=== PATIENT | female | born 1965 | race Caucasian/White ===

== ENCOUNTER 2016-09-23 14:06 | Observation (INO) | payer OTHER ==
[~2016-09-23] VITALS: Ht 160 cm; Wt 63.0 kg
[2016-09-23 14:16] VITALS: BP 130/69; PULSE 90; RESP 20; TEMP 97.9; O2SAT 98
--- NOTE | 2016-09-23 16:05 | PD ---
HPI Chief Complaint: Depression Time Seen by Provider: 15:45 Travel History International Travel<30 days: No Contact w/Intl Traveler<30days: No Traveled to known affect area: No History of Present Illness HPI 51yo F with PMH of depression presents to the ED with c/o occasional suicidal thoughts. Denies any right now. Also has visual hallucinations but not right now. Pt was a missing person and was brought to [facility] and had a full work up and discharged today. As per pt, they were told to come to [place] for psych. Pt denies any fever, chest pain, sob, n/v, abdominal pain, focal weakness or numbness. Denies any drug use. PFSH Social History Tobacco Use: No Allergies-Medications (Allergen,Severity, Reaction): Coded Allergies: Penicillin (Verified Allergy, Intermediate, hives, 09/23/16) Reported Meds & Prescriptions Reported Meds & Active Scripts Active No Active Prescriptions or Reported Medications Review of Systems Except as stated in HPI: all other systems reviewed are Neg Physical Exam Narrative GENERAL: 51yo F not in distress. SKIN: Focused skin assessment warm/dry. HEAD: Atraumatic. Normocephalic. EYES: Pupils equal and round. EOMI. No scleral icterus. No injection or drainage. ENT: No nasal bleeding or discharge. Mucous membranes pink and moist. NECK: Trachea midline. No JVD. CARDIOVASCULAR: Regular rate and rhythm. No murmur appreciated. RESPIRATORY: No accessory muscle use. Clear to auscultation. Breath sounds equal bilaterally. GASTROINTESTINAL: Abdomen soft, non-tender, nondistended. No rebound tenderness or guarding. MUSCULOSKELETAL: No obvious deformities. No clubbing. No cyanosis. No edema. NEUROLOGICAL: Awake and alert. No obvious cranial nerve deficits. Motor grossly within normal limits. Normal speech. PSYCHIATRIC: Inappropriate mood and affect. Poor insight and judgment. Data Data Last Documented VS Vital Signs Date Time Temp Pulse Resp B/P Pulse Ox O2 Delivery O2 Flow Rate FiO2 09/23/16 15:46 88 18 09/23/16 14:16 97.9 130/69 98 Room Air Orders Complete Blood Count With Diff (09/23/16 16:00) Comprehensive Metabolic Panel (09/23/16 16:00) Ed Urine Pregnancytest Poc (09/23/16 16:00) Psych Screen (09/23/16 16:00) Drug Screen, Random Urine (09/23/16 16:00) Alcohol (Ethanol) (09/23/16 16:00) Salicylates (Aspirin) (09/23/16 16:00) Tylenol (Acetaminophen) (09/23/16 16:00) Potassium Chloride (Kcl) (09/23/16 17:30) Potassium Chloride (Kcl) (09/24/16 07:00) Labs Laboratory Tests Test 09/23/16 09/23/16 16:10 16:15 Urine Opiates Screen NEG Urine Barbiturates Screen NEG Urine Amphetamines Screen NEG Urine Benzodiazepines Screen NEG Urine Cocaine Screen NEG Urine Cannabinoids Screen NEG White Blood Count 12.6 TH/MM3 Red Blood Count 4.28 MIL/MM3 Hemoglobin 13.7 GM/DL Hematocrit 41.3 % Mean Corpuscular Volume 96.5 FL Mean Corpuscular Hemoglobin 31.9 PG Mean Corpuscular Hemoglobin 33.1 % Concent Red Cell Distribution Width 13.3 % Platelet Count 335 TH/MM3 Mean Platelet Volume 8.6 FL Neutrophils (%) (Auto) 61.9 % Lymphocytes (%) (Auto) 25.6 % Monocytes (%) (Auto) 9.5 % Eosinophils (%) (Auto) 2.5 % Basophils (%) (Auto) 0.5 % Neutrophils # (Auto) 7.8 TH/MM3 Lymphocytes # (Auto) 3.2 TH/MM3 Monocytes # (Auto) 1.2 TH/MM3 Eosinophils # (Auto) 0.3 TH/MM3 Basophils # (Auto) 0.1 TH/MM3 CBC Comment DIFF FINAL Differential Comment Sodium Level 144 MEQ/L Potassium Level 2.9 MEQ/L Chloride Level 104 MEQ/L Carbon Dioxide Level 30.9 MEQ/L Anion Gap 9 MEQ/L Blood Urea Nitrogen 10 MG/DL Creatinine 1.02 MG/DL Estimat Glomerular Filtration 57 ML/MIN Rate Random Glucose 99 MG/DL Calcium Level 10.1 MG/DL Total Bilirubin 0.4 MG/DL Aspartate Amino Transf 40 U/L (AST/SGOT) Alanine Aminotransferase 129 U/L (ALT/SGPT) Alkaline Phosphatase 71 U/L Total Protein 8.4 GM/DL Albumin 3.9 GM/DL Salicylates Level 4.2 MG/DL Acetaminophen Level LESS THAN 2.0 MCG/ML Ethyl Alcohol Level LESS THAN 3 MG/DL MDM Medical Decision Making Medical Screen Exam Complete: Yes Emergency Medical Condition: Yes Differential Diagnosis Psychosis vs. Depression vs. bipolar vs. schizophrenia Narrative Course 51yo F who appears stoic and paranoid here for psychiatric evaluation. Pt has no medical complaints and has just been discharged from [facility] today. Will do labs, urine drug screen and obtain psych evaluation. Informed by my nurse that pt states she is suicidal to her. Pt is psychotic and telling me about her visual hallucinations. I feel that she is a threat to herself and will Wooten Act her. Labs reviewed, mild leukocytosis at 12.6. K: 2.9, replaced with 60mEq KCl PO and will give another 40mEq KCl in AM if pt is still here. Pt is tolerating PO and can replace orally. AST/ALT mildly elevated but pt has no abdominal pain. Pt has no complaints and was just discharged from another hospital with full work up. Urine tox is negative. Alcohol negative. Acetaminophen negative. Salicylate 4.2. Pt is medically clear for psych evaluation. Diagnosis Primary Impression: Depression Qualified Code: F32.9 - Depression, unspecified depression type Additional Impression: Hypokalemia Scripts No Active Prescriptions or Reported Meds Stella Kim DO September 23, 2016 16:05
[2016-09-23 16:40] LABS: AUTOMATED NEUTROPHIL # 7.8 TH/MM3 (1.8-7.7); BASOPHIL # 0.1 TH/MM3 (0-0.2); BASOPHIL % 0.5 % (0.0-2.0); EOSINOPHIL # 0.3 TH/MM3 (0-0.4); EOSINOPHIL % 2.5 % (0.0-4.0); HEMATOCRIT 41.3 % (35.0-46.0); HEMO FLAGS DIFF FINAL; LYMPH % 25.6 % (9.0-44.0); LYMPHOCYTE # 3.2 TH/MM3 (1.0-4.8); MEAN CELL VOLUME 96.5 FL (80.0-100.0); MEAN CORPUSCULAR HEMOGLOBIN 31.9 PG (27.0-34.0); MEAN CORPUSCULAR HGB CONC 33.1 % (32.0-36.0); MONO % 9.5 % (0.0-8.0); NEUT % 61.9 % (16.0-70.0); PLATELET COUNT 335 TH/MM3 (150-450); RED BLOOD COUNT 4.28 MIL/MM3 (4.00-5.30); RED CELL DISTRIBUTION WIDTH 13.3 % (11.6-17.2); WHITE BLOOD COUNT 12.6 TH/MM3 (4.0-11.0)
[2016-09-23 17:02] LABS: AMPHETAMINE, URINE NEG (NEG); BARBITURATES, URINE NEG (NEG); COCAINE, URINE NEG (NEG)
[2016-09-23 17:18] LABS: ACETAMINOPHEN LESS THAN 2.0 MCG/ML (10.0-30.0); ALKALINE PHOSPHATASE 71 U/L (45-117); ALT (GPT) 129 U/L (10-53); ANION GAP 9 MEQ/L (5-15); AST (GOT) 40 U/L (15-37); BICARBONATE 30.9 MEQ/L (21.0-32.0); BLOOD UREA NITROGEN 10 MG/DL (7-18); CHLORIDE 104 MEQ/L (98-107); GLOMERULAR FILTRATION RATE 57 ML/MIN (>89); SODIUM (NA) 144 MEQ/L (136-145); TOTAL BILIRUBIN ADULT 0.4 MG/DL (0.2-1.0)
[2016-09-23 17:20] LABS: POTASSIUM 2.9 MEQ/L (3.5-5.1)
[2016-09-23] MEDS ORDERED: POTASSIUM CHLORIDE 20 MEQ CONTROLLED RELEASE TAB PO ONE (17:30)
[2016-09-23 22:49] VITALS: BP 118/67; PULSE 58; RESP 18
[2016-09-24 02:05] VITALS: BP 143/69; PULSE 56; RESP 19; TEMP 98.9; O2SAT 98
[2016-09-24 06:02] VITALS: BP 165/81; PULSE 58; RESP 19; O2SAT 96
[2016-09-24] MEDS ORDERED: POTASSIUM CHLORIDE 20 MEQ CONTROLLED RELEASE TAB PO ONE (07:00)
--- NOTE | 2016-09-24 10:50 | PD ---
Data Data Last Documented VS Vital Signs Date Time Temp Pulse Resp B/P Pulse Ox O2 Delivery O2 Flow Rate FiO2 09/24/16 13:24 51 16 141/90 99 Room Air 09/24/16 02:05 98.9 Orders Complete Blood Count With Diff (09/23/16 16:00) Comprehensive Metabolic Panel (09/23/16 16:00) Ed Urine Pregnancytest Poc (09/23/16 16:00) Psych Screen (09/23/16 16:00) Drug Screen, Random Urine (09/23/16 16:00) Alcohol (Ethanol) (09/23/16 16:00) Salicylates (Aspirin) (09/23/16 16:00) Tylenol (Acetaminophen) (09/23/16 16:00) Potassium Chloride (Kcl) (09/23/16 17:30) Potassium Chloride (Kcl) (09/24/16 07:00) Diet Regular Basic (09/24/16 Breakfast) C Diff Toxin Pcr (09/24/16 08:36) Stool Ova And Parasite Screen (09/24/16 08:36) Diet Regular Basic (09/24/16 Lunch) Admit Order (Ed Use Only) (09/24/16 ) Labs Laboratory Tests Test 09/23/16 09/23/16 16:10 16:15 Urine Opiates Screen NEG Urine Barbiturates Screen NEG Urine Amphetamines Screen NEG Urine Benzodiazepines Screen NEG Urine Cocaine Screen NEG Urine Cannabinoids Screen NEG White Blood Count 12.6 TH/MM3 Red Blood Count 4.28 MIL/MM3 Hemoglobin 13.7 GM/DL Hematocrit 41.3 % Mean Corpuscular Volume 96.5 FL Mean Corpuscular Hemoglobin 31.9 PG Mean Corpuscular Hemoglobin 33.1 % Concent Red Cell Distribution Width 13.3 % Platelet Count 335 TH/MM3 Mean Platelet Volume 8.6 FL Neutrophils (%) (Auto) 61.9 % Lymphocytes (%) (Auto) 25.6 % Monocytes (%) (Auto) 9.5 % Eosinophils (%) (Auto) 2.5 % Basophils (%) (Auto) 0.5 % Neutrophils # (Auto) 7.8 TH/MM3 Lymphocytes # (Auto) 3.2 TH/MM3 Monocytes # (Auto) 1.2 TH/MM3 Eosinophils # (Auto) 0.3 TH/MM3 Basophils # (Auto) 0.1 TH/MM3 CBC Comment DIFF FINAL Differential Comment Sodium Level 144 MEQ/L Potassium Level 2.9 MEQ/L Chloride Level 104 MEQ/L Carbon Dioxide Level 30.9 MEQ/L Anion Gap 9 MEQ/L Blood Urea Nitrogen 10 MG/DL Creatinine 1.02 MG/DL Estimat Glomerular Filtration 57 ML/MIN Rate Random Glucose 99 MG/DL Calcium Level 10.1 MG/DL Total Bilirubin 0.4 MG/DL Aspartate Amino Transf 40 U/L (AST/SGOT) Alanine Aminotransferase 129 U/L (ALT/SGPT) Alkaline Phosphatase 71 U/L Total Protein 8.4 GM/DL Albumin 3.9 GM/DL Salicylates Level 4.2 MG/DL Acetaminophen Level LESS THAN 2.0 MCG/ML Ethyl Alcohol Level LESS THAN 3 MG/DL MDM Supervised Visit with BRIANDA: Yes Narrative Course Was asked to see patient by nurse screener. Patient was here overnight [facility] by Dr. Kim. She is flat affect and i suspect some underlying psychosis. She is oriened to person and place only. Outside records obtained shows CT head scan performed this week negative. Patient having significant non-bloody diarrhea and was planned to go to [facility], however given her diarrhea presumed infectious given recent antibiotic us will preclude her from transfer to [facility]. Patient was discussed with family medicine for medical admission for now. Psychiatry has been notified. Diagnosis Primary Impression: Depression Qualified Code: F32.9 - Depression, unspecified depression type Additional Impression: Hypokalemia Admitting Information Admitting Physician Requests: Observation Scripts No Active Prescriptions or Reported Meds Condition: Stable Daniel Feng MD September 24, 2016 10:50
[2016-09-24 13:24] VITALS: BP 141/90; PULSE 51; RESP 16; O2SAT 99
[2016-09-24] MEDS ORDERED: ACETAMINOPHEN 325 MG TAB PO PRN (14:45)
[2016-09-24] MEDS ORDERED: NALOXONE HCL 0.4 MG/ML AMP IV PRN (14:45)
[2016-09-24] MEDS ORDERED: SODIUM CHLORIDE 0.9% FLUSH 10 ML FLUSH IV FLUSH PRN (14:45)
[2016-09-24] MEDS ORDERED: ONDANSETRON ODT 4 MG TAB SL PRN (14:45)
[2016-09-24 16:30] VITALS: BP 129/69; PULSE 63; RESP 20; TEMP 98.5; O2SAT 94
[2016-09-24 16:43] LABS: BACTERIA, URINE MOD /hpf; BLOOD, URINE LARGE (NEG); COMMENT (UR) CULTURE INDICATED; CULTURE IF INDICATED CULTURE INDICATED; GLUCOSE,URINE NEG (NEG); KETONE, URINE NEG (NEG); MUCUS URINE FEW /lpf (OCC); NITRITE,URINE NEG (NEG); SQUAMOUS EPITHELIAL CELL URINE 33 /hpf (0-5); TRANSITIONAL EPI CELLS, URINE 4 /hpf; URINE COLOR YELLOW (YELLW/STRAW)
--- NOTE | 2016-09-24 16:46 | HHI.HP ---
HPI Service Family Medicine Primary Care Physician No Primary Care Physician Admission Diagnosis Diarrhea, Altered mental status. Diagnoses: International Travel<30 Days: No Contact w/Intl Traveler<30days: No Known Affected Area: No History of Present Illness 51yo F with PMH of depression presented to the ED with complaints of occasional suicidal thoughts and visual hallucinations and was admitted to psychiatry. Medicine team was called for admission as patient is having diarrhea since receiving a single dose of Rocephin per report, and there is concern for C. Difficile. Per EMR: patient was a missing person and was brought to [facility] and had a full work up and was discharged yesterday. Per pt, was told to come to [place] for psych where she was admitted to psychiatry under Wooten Act. She has placement at [facility]. Denies any fever, chest pain, sob, n/v, abdominal pain. Complains of pain on urination. States she is unable to give urine sample because the urine is mixed with stool. Denies any tobacco or drug use. Prior alcohol use, last time was 3 months ago per pt (Lucy Goldsmith MD) Review of Systems Constitutional: DENIES: Fever, Chills Respiratory: DENIES: Cough, Shortness of breath Cardiovascular: DENIES: Chest pain Gastrointestinal: COMPLAINS OF: Diarrhea, DENIES: Abdominal pain, Constipation , Nausea, Vomiting Genitourinary: COMPLAINS OF: Dysuria, DENIES: Urinary frequency Neurologic: DENIES: Headache Psychiatric: COMPLAINS OF: Depression, Hallucinations, Suicidal Ideation, DENIES: Homicidal Ideation (Lucy Goldsmith MD) Past Family Social History Past Medical History PMH: Depression PSx: Fusion of neck SH: Denies any tobacco or drug use. Prior alcohol use, last time was 3 months ago per pt Homeless, lives in [facility] per pt (Lucy Goldsmith MD) Allergies: Coded Allergies: Penicillin (Verified Allergy, Intermediate, hives, 09/23/16) Physical Exam Vital Signs Vital Signs Date Time Temp Pulse Resp B/P Pulse Ox O2 Delivery O2 Flow Rate FiO2 09/24/16 13:24 51 16 141/90 99 Room Air 09/24/16 06:02 58 19 165/81 96 09/24/16 02:05 98.9 56 19 143/69 98 09/23/16 22:49 58 18 118/67 Room Air Physical Exam GENERAL: No apparent distress. SKIN: No rashes, ecchymoses or lesions. Cool and dry. HEAD: Atraumatic. Normocephalic. EYES: Extraocular motions intact. No scleral icterus. No injection or drainage. ENT: Nose without bleeding or drainage. MMM. NECK: Trachea midline. CARDIOVASCULAR: Regular rate and rhythm without murmurs, gallops, or rubs. RESPIRATORY: Clear to auscultation. Breath sounds equal bilaterally. No wheezes , rales, or rhonchi. GASTROINTESTINAL: +BS. Abdomen soft, non-tender, nondistended. MUSCULOSKELETAL: Extremities without clubbing, cyanosis, or edema. CVA tenderness bilaterally L>R. NEUROLOGICAL: Awake and alert. Oriented x3 (knows Name, location, Date- states Sep 25 2016, off by 1 day). Motor and sensory grossly within normal limits. Normal speech. PSYCHIATRIC: Depressed mood and flat affect. Poor insight and judgment. Denies suicidal ideation or homicidal ideation at this time. Laboratory Laboratory Tests Test 09/24/16 16:20 Urine Color YELLOW Urine Turbidity CLOUDY Urine pH 6.0 Urine Specific [place] 1.015 Urine Protein 30 Urine Glucose (UA) NEG Urine Ketones NEG Urine Occult Blood LARGE Urine Nitrite NEG Urine Bilirubin NEG Urine Urobilinogen LESS THAN 2.0 Urine Leukocyte Esterase LARGE Urine RBC 149 Urine WBC Urine Squamous Epithelial 33 Cells Urine Transitional Epithelial 4 Cells Urine Amorphous Sediment RARE Urine Bacteria MOD Urine Mucus FEW Urine Yeast (Budding) MANY Microscopic Urinalysis Comment CULTURE INDICATED Date/Time Procedure Status Source Growth 09/24/16 16:20 Urine Culture Received Urine Clean Catch Pending 09/24/16 16:20 Cryptosporidium Exam Received Stool Stool Pending 09/24/16 16:20 Giardia Antigen (RICK) Received Stool Stool Pending (Lucy Goldsmith MD) Result Diagram: 09/23/16 1615 09/23/16 1615 Assessment and Plan Assessment and Plan 51-year-old female admitted to psychiatry under Wooten act for acute psychosis, with medicine team admitting for diarrhea after receiving antibiotic Code Status Full Discussed Condition With Discussed with Dr. Middleton (Lucy Goldsmith MD) Attending Attestation THIS CASE WAS DISCUSSED WITH THE RESIDENT PHYSICIAN. I HAVE REVIEWED THE RECORD AND AGREE WITH THE ABOVE NOTE AND PLAN OF CARE WAS DISCUSSED. I HAVE AUTHORIZED THE ORDER FOR PLACEMENT IN OUT-PATIENT OBSERVATION STATUS. (Man Middleton MD) Problem List: (1) Diarrhea Status: Acute Plan: Per report, patient started having multiple episodes of diarrhea after antibiotic use Plan: * Stool studies pending * C. difficile pending (2) Hypokalemia Status: Acute Plan: Potassium 2.9, received 100 mEq of by mouth potassium in ED * Check BMP at 8 PM tonight * Daily BMP (3) Dysuria Status: Acute Plan: Plan: * UA pending (4) Elevated LFTs Status: Acute Plan: LFTs elevated with AST 40, ALT 129 Plan: * Repeat CMP in a.m. * Consider hepatitis profile if continues to be elevated (5) Suicidal ideation Status: Acute Plan: Was admitted here for psychosis with visual hallucinations and suicidal ideation. Urine tox negative. Alcohol negative. Acetaminophen negative. Salicylate 4.2. Plan: * Currently under Wooten Act * Psychiatry consulted (6) Nutrition, metabolism, and development symptoms Status: Acute Plan: Regular diet Electrolytes: Potassium 2.9, replaced and repeat BMP as above No IV fluids: Encourage by mouth fluid intake (7) Deep vein thrombosis (DVT) prophylaxis prescribed at discharge Status: Acute Plan: SCDs (Lucy Goldsmith MD) Problem Qualifiers (1) Diarrhea: Qualified Code: R19.7 - Diarrhea, unspecified type Lucy Goldsmith MD September 24, 2016 16:46 Man Middleton MD September 25, 2016 17:52 Lucy Goldsmith MD September 24, 2016 16:46
[2016-09-24 17:36] LABS: C. DIFF EPI 027 PRESUMPTIVE NEGATIVE (NEGATIVE); C. DIFF TOXIN PCR NEGATIVE (NEGATIVE)
[2016-09-24 20:58] VITALS: BP 134/74; PULSE 70; RESP 18; TEMP 98; O2SAT 99
[2016-09-24] MEDS: SODIUM CHLORIDE 0.9% FLUSH 10 ML FLUSH IV FLUSH SCH (21:56)
[2016-09-24 23:09] LABS: BICARBONATE 31.4 MEQ/L (21.0-32.0); POTASSIUM 3.9 MEQ/L (3.5-5.1)
[2016-09-25 00:17] VITALS: BP 143/73; PULSE 54; RESP 18; TEMP 98.1; O2SAT 100
[2016-09-25 04:25] VITALS: BP 130/63; PULSE 61; RESP 18; TEMP 97.7; O2SAT 98
[2016-09-25 07:27] LABS: BASOPHIL # 0.1 TH/MM3 (0-0.2); BASOPHIL % 1.2 % (0.0-2.0); EOSINOPHIL # 0.5 TH/MM3 (0-0.4); EOSINOPHIL % 4.8 % (0.0-4.0); HEMO FLAGS DIFF FINAL; LYMPH % 29.5 % (9.0-44.0); LYMPHOCYTE # 3.2 TH/MM3 (1.0-4.8); MEAN CORPUSCULAR HGB CONC 34.4 % (32.0-36.0); MONO % 8.7 % (0.0-8.0); NEUT % 55.8 % (16.0-70.0); PLATELET COUNT 301 TH/MM3 (150-450); RED BLOOD COUNT 4.27 MIL/MM3 (4.00-5.30); RED CELL DISTRIBUTION WIDTH 13.6 % (11.6-17.2); WHITE BLOOD COUNT 10.8 TH/MM3 (4.0-11.0)
[2016-09-25 07:55] LABS: ANION GAP 9 MEQ/L (5-15); AST (GOT) 38 U/L (15-37); BICARBONATE 28.5 MEQ/L (21.0-32.0); BLOOD UREA NITROGEN 10 MG/DL (7-18); CHLORIDE 105 MEQ/L (98-107); GLOMERULAR FILTRATION RATE 88 ML/MIN (>89); POTASSIUM 4.4 MEQ/L (3.5-5.1); SODIUM (NA) 142 MEQ/L (136-145)
[2016-09-25 07:57] LABS: ALKALINE PHOSPHATASE 72 U/L (45-117); ALT (GPT) 97 U/L (10-53); TOTAL BILIRUBIN ADULT 0.6 MG/DL (0.2-1.0)
--- NOTE | 2016-09-25 08:33 | HHI.FPPN ---
Subjective Remarks Attending Note: Patient seen and examined. S: Chart and all resident physician notes reviewed. In summary this is a 51 year old female who was admitted with an admission diagnosis of Diarrhea, Altered Mental Status. This patient had presented to the ER due to depression with noted hallucinations. Arrangements made for admission to [facility] medicine ask to admit overnight due to concerns with diarrhea. Had received a single dose of Rocephin at another hospital and concerns were raised about possible C.decile. Diarrhea resolved. this AM. Objective Vitals Vital Signs Date Time Temp Pulse Resp B/P Pulse Ox O2 Delivery O2 Flow Rate FiO2 09/25/16 04:25 97.7 61 18 130/63 98 09/25/16 00:17 98.1 54 18 143/73 100 09/24/16 20:58 98.0 70 18 134/74 99 09/24/16 16:30 98.5 63 20 129/69 94 09/24/16 13:24 51 16 141/90 99 Room Air Result Diagram: 09/25/16 0650 09/25/16 0650 Other Results Item Value Date Time Total Creatine Kinase 49 U/L 09/24/16 1610 Total Creatine Kinase 41 U/L 09/24/16 2225 Total Bilirubin 0.4 MG/DL 09/23/16 1615 Aspartate Amino Transf (AST/SGOT) 40 U/L H 09/23/16 1615 Alanine Aminotransferase (ALT/SGPT) 129 U/L H 09/23/16 1615 Aspartate Amino Transf (AST/SGOT) 38 U/L H 09/25/16 0650 Alanine Aminotransferase (ALT/SGPT) 97 U/L H 09/25/16 0650 Stool C. difficile Toxin (PCR) NEGATIVE 09/24/16 1620 Stl C. difficile Toxin Epiderm 027 PRESUMPTIVE NEGATIVE 09/24/16 1620 Urine Specific [place] 1.015 09/24/16 1620 Urine Occult Blood LARGE H 09/24/16 1620 Urine Nitrite NEG 09/24/16 1620 Urine Leukocyte Esterase LARGE H 09/24/16 1620 Urine RBC 149 /hpf H 09/24/16 1620 Objective Remarks O. CONSTITUTIONAL/GEN: normally nourished, in NAD. LUNGS: clear A-P, respiratory effort is normal. CARDIOVASCULAR: RR without murmur or gallop. No significant edema. GI/ABD: soft without masses, without organomegaly. NEURO: No focal deficits. SKIN: color normal, no rashes noted. HEME/LYMPH: no bruising, petechia or significant adenopathy MUSC: back is normal in appearance. Extremities are normal in appearance. PSYCH/MENTAL STATUS: Awake and alert. A/P Assessment and Plan 51-year-old female admitted to psychiatry under Wooten act for acute psychosis, with medicine team admitting for diarrhea after receiving antibiotic Problem List: (1) Diarrhea Status: Acute Plan: Per report, patient started having multiple episodes of diarrhea after antibiotic use Plan: * Stool studies pending * C. difficile pending 09/25/16 C. difficile studies negative. No further treatment for diarrhea indicated. Advance diet slowly. Cleared for transfer to psychiatric unit. (2) Hypokalemia Status: Acute Plan: Potassium 2.9, received 100 mEq of by mouth potassium in ED * Check BMP at 8 PM tonight * Daily BMP (3) Dysuria Status: Acute Plan: clarke Plan: * UA pending * 09/25/16 UA suggestive of cystitis. Will discharge patient with oral antibiotic therapy (4) Elevated LFTs Status: Acute Plan: LFTs elevated with AST 40, ALT 129 Plan: * Repeat CMP in a.m. * Consider hepatitis profile if continues to be elevated (5) Suicidal ideation Status: Acute Plan: Was admitted here for psychosis with visual hallucinations and suicidal ideation. Urine tox negative. Alcohol negative. Acetaminophen negative. Salicylate 4.2. Plan: * Currently under Wooten Act * Psychiatry consulted (6) Nutrition, metabolism, and development symptoms Status: Acute Plan: Regular diet Electrolytes: Potassium 2.9, replaced and repeat BMP as above No IV fluids: Encourage by mouth fluid intake (7) Deep vein thrombosis (DVT) prophylaxis prescribed at discharge Status: Acute Plan: SCDs Problem Qualifiers (1) Diarrhea: Qualified Code: R19.7 - Diarrhea, unspecified type Man Middleton MD September 25, 2016 08:33
[2016-09-25 08:37] VITALS: BP 140/68; PULSE 64; RESP 18; TEMP 98.8; O2SAT 99
[2016-09-25] MEDS ORDERED: BACT800T5 PO (08:37)
--- NOTE | 2016-09-25 08:38 | HHI.DCPOC ---
Discharge Care Plan Diagnosis: (1) Hypokalemia (2) Diarrhea (3) Suicidal ideation (4) Depression (5) Visual hallucinations (6) UTI (urinary tract infection) Goals to Promote Your Health * To prevent worsening of your condition and complications * To maintain your health at the optimal level Directions to Meet Your Goals Take your medications as prescribed Follow your dietary instruction Follow activity as directed Keep your appointments as scheduled Take your immunizations and boosters as scheduled If your symptoms worsen call your PCP, if no PCP go to Urgent Care Center or Emergency Room Smoking is Dangerous to Your Health. Avoid second hand smoke Call the 24-hour hour crisis hotline for domestic abuse at Lucy Goldsmith MD September 25, 2016 08:38
[2016-09-25] MEDS ORDERED: SULFAMETHOXAZOLE-TRIMETHOPRIM DS 800-160 MG TAB PO SCH (09:00)
[2016-09-25] MEDS: SODIUM CHLORIDE 0.9% FLUSH 10 ML FLUSH IV FLUSH SCH (09:54)
== END 2016-09-25 11:36 ==
LOC: NEPC 14:06 → NEDA 09-24 13:42 → NEPHCDU 09-24 17:19
PROVIDERS: ADMIT Family Medicine; ATTEND Family Medicine
DX: F32.9 Major depressive disorder, single episode, unspecified (principal); E87.6 Hypokalemia; R19.7 Diarrhea, unspecified; R30.0 Dysuria; Z59.0 Homelessness; Z88.0 Allergy status to penicillin; R45.851 Suicidal ideations; D72.829 Elevated white blood cell count, unspecified; F23 Brief psychotic disorder
CPT/HCPCS: 80048; 80053; 80307; 81001; 82550; 84703; 85025; 87086; 87493; 99284; G0378

== ENCOUNTER 2016-09-25 11:40 | Inpatient (IN) | payer OTHER ==
[~2016-09-25] VITALS: Ht 180.3 cm; Wt 59.9 kg
[~2016-09-25 11:40] MED LIST: BACT800T5 PO
[2016-09-25 11:58] VITALS: BP 127/73; PULSE 60; RESP 18; TEMP 98.3; O2SAT 97
[2016-09-25] MEDS ORDERED: MAGNESIUM HYDROXIDE SUSP 30 ML CUP PO PRN (13:15)
[2016-09-25] MEDS ORDERED: LORazepam 1 MG TAB PO PRN (13:15)
[2016-09-25] MEDS ORDERED: LORazepam 2 MG/ML VIAL IM PRN ×2 (13:15)
[2016-09-25] MEDS ORDERED: LORazepam 0.5 MG TAB PO PRN (13:15)
[2016-09-25] MEDS ORDERED: ALUMINUM/MAGNESIUM/SIMETH 30 ML CUP PO PRN (13:15)
[2016-09-25] MEDS ORDERED: ACETAMINOPHEN 325 MG TAB PO PRN (13:15)
[2016-09-25] MEDS: NICOTINE 21 MG/24 HR PATCH T-DERMAL SCH (13:15)
--- NOTE | 2016-09-25 13:35 | HHI.HP ---
Provisional Diagnosis Admission Date September 25, 2016 at 11:40 [place] I. Unspecified psychosis, rule out delirium due to underlying medical condition, and his case UTI, hypokalemia, or alcohol withdrawal [place] II. Deferred [place] III. UTI, hypokalemia [place] IV. Homeless, poor social and family support [place] V. 35 Certification of Person's Competence To Provide Express and Informed Consent I have personally examined Loraine Hopson , a person being served at [facility] on, September 25, 2016 13:16. Express and informed consent means consent voluntarily given in writing, by a competent person, after sufficient explanation and disclosure of the subject matter involved to enable the person to make a knowing and willful decision without any element of force, fraud, deceit, duress, or other form of constraint or coercion. This person is 18 years of age or older, is not now known to be incompetent to consent to treatment with a guardian advocate, and does not have a health care surrogate or proxy currently making medical treatment decisions. I have found this person to be one of the following: [] Competent to provide express and informed consent, as defined above, for voluntary admission to this facility and is competent to provide express and informed consent for treatment. He/she has the consistent capacity to make well reasoned, willful, and knowing decisions concerning his or her medical or mental health treatment. The person fully and consistently understands the purpose of the admission for examination/placement and is fully capable of personally exercising all rights assured under [place] [] Incompetent to provide express and informed consent to voluntary admission, and this is incompetent to provide express and informed consent to treatment. The person must be transferred to involuntary status and a petition for a guardian advocate filed with the Circuit Court. [X] Refusing to provide express and informed consent to voluntary admission but is competent to provide express and informed consent for treatment. The person must be discharged or transferred to involuntary status. Form shall be completed within 24 hours of a person's arrival at the receiving facility and filed in the clinical record of each person: 1. Admitted on a voluntary basis 2. Permitted to provide express and informed consent to his/her own treatment 3. Allowed to transfer from involuntary to voluntary status 4. Prior to permitting a person to consent to his or her own treatment after having been previously found incompetent to consent to treatment. History of Present Illness Capacity: Has Capacity HPI The patient is a 51-year-old woman, , homeless, without any previous psychiatric history, no previous psychiatric hospitalizations, no previous suicidal attempts, as per stepmother she has history of alcohol use disorder in the past, patient says that she hasn't used alcohol for the last 3 months, no significant medical history, who presented to the ED with complaints of occasional suicidal thoughts and visual hallucinations and was admitted to psychiatry. She was previously placed in J pod, but medicine team was called for admission as patient is having diarrhea since receiving a single dose of Rocephin per report, and there is concern for C. Difficile. Per EMR: patient was a missing person and was brought to [facility] and had a full work up and was discharged yesterday. Per pt, was told to come to [place] for psych where she was admitted to psychiatry under [place] Act. On psychiatric evaluation patient is found in her bed, she is calm, but kind of detached, superficially cooperative. Patient says that she has been feeling very depressed for the last weeks, has been walking in the street, getting confused, forgetting things, she hasn't been eating, she says that she has been having visual hallucinations "usually obstacles in the way, also people behind and in front of me", but she denies auditory hallucinations. She reports suicidal ideation, she says"I want to live anymore, there is nothing for me to do in this world", but she denies suicidal intentions or plan. Patient seems to be internally stimulated, at times paranoid, with a pronounced blocking thought and poverty of speech. Patient is oriented 3 and now, no attention deficit present, she does not seems to be delirious. She denies the use of illicit drugs, reports that she was an alcoholic, but hasn't been drinking for the last 3 months. I try to get collateral information from her stepmother, , but her stepmother says that she hasn't seen the patient for a few months now. And she doesn't know anything about her psychiatric history or about her current living circumstances. But she clarifies the patient has extensive history of alcohol use disorder. Review of Systems Constitutional: DENIES: Diaphoretic episodes, Fatigue, Fever, Weight gain, Weight loss, Chills, Dizziness, Change in appetite, Night Sweats Endocrine: DENIES: Abnorml menstrual pattern, Heat/cold intolerance, Polydipsia , Polyuria, Polyphagia Eyes: DENIES: Blurred vision, Diplopia, Eye inflammation, Eye pain, Vision loss , Photosensitivity, Double Vision Ears, nose, mouth, throat: DENIES: Tinnitus, Hearing loss, Vertigo, Nasal discharge, Oral lesions, Throat pain, Hoarseness, Ear Pain, Running Nose, Epistaxis, Sinus Pain, Toothache, Odynophagia Respiratory: DENIES: Apneas, Cough, Snoring, Wheezing, Hemoptysis, Sputum production, Shortness of breath Cardiovascular: DENIES: Chest pain, Palpitations, Syncope, Dyspnea on Exertion , PND, Lower Extremity Edema, Orthopnea, Claudication Genitourinary: DENIES: Abnormal vaginal bleeding, Dysmenorrhea, Dyspareunia, Sexual dysfunction, Urinary frequency, Urinary incontinence, Urgency, Hematuria , Dysuria, Nocturia, Vaginal discharge Hematologic/lymphatic: DENIES: Bruising, Lymphadenopathy Immunologic/allergic: DENIES: Eczema, Urticaria Neurologic: DENIES: Abnormal gait, Headache, Localized weakness, Paresthesias, Seizures, Speech Problems, Tremor, Poor Balance Psychiatric: COMPLAINS OF: Confusion, Mood changes, Hallucinations, Suicidal Ideation, DENIES: Anxiety, Depression, Agitation, Homicidal Ideation, Delusions Past Psych History Violence risk - self (6 mos) Increased risk to harm herself Substance Abuse History Drugs/Alcohol past 12 months Patient denies drug use, and alcohol use in the last 3 months Past Family Social History Coded Allergies: Penicillin (Verified Allergy, Intermediate, hives, 09/23/16) Active Scripts Sulfamethoxazole-Trimethoprim (Bactrim DS)800-160 Mg Tab1 Tab PO BID #10 TAB Ref 0 Prov:Lucy Goldsmith MD 09/25/16 Current Medications Medications (Trade) Dose Ordered Sig/Snow Route Start Time Stop Time Status Last Admin (Ativan) 1 mg Q6H PRN PO 09/25/16 13:15 (Ativan Inj) 1 mg Q6H PRN IM 09/25/16 13:15 (Tylenol) 650 mg Q4H PRN PO 09/25/16 13:15 (Milk Of Magnesia Liq) 30 ml DAILY PRN PO 09/25/16 13:15 (Mag-Al Plus Susp Liq) 30 ml Q6H PRN PO 09/25/16 13:15 (Habitrol 21 Mg Patch.24 Hr) 1 patch DAILY T-DERMAL 09/25/16 13:15 UNV (ZyPREXA) 2.5 mg Q12HR PO 09/25/16 13:15 (Bactrim Ds 800-160 Mg) 1 tab BID PO 09/25/16 13:15 UNV Family History Patient denies family psychiatric history Social History She was born and raised in [place], she is homeless, , unemployed , she doesn't have adoption social worker, her highest level of education is 10th grade Patient's Strengths (min. 2) Verbal communication Physical Exam On physical exam, no withdrawal symptoms, no EPS, no agitation, no aggressive behavior, no tremor, but patient is hypoactive and seems to be psychomotor retarded Vital Signs Vital Signs Date Time Temp Pulse Resp B/P Pulse Ox O2 Delivery O2 Flow Rate FiO2 09/25/16 11:58 98.3 60 18 127/73 97 Lab Results WBC 10.8, HBG 14, HCT 41, NA 142, K2.9, but improved to 4.4, creatinine 0.7, urine 18, AST 38, ALT 97. Toxicology and BAL are negative Urine positive for urinary tract infection Mental Status Examination Appearance woman, good hygiene, [facility], age appearing, calm, but superficially cooperative, hypoactive Speech: Hesitant, Slow Memory: Unremarkable Thought Process: Goal Directed, Thought Blocking Thought Content: Paranoid Language Language is reticent, with decreased fluency Fund of Knowledge Unable to be assess due to blocking thought Suicidal Ideation: Yes Previous Suicide Attempts: No Homicidal Ideation: No Previous Homicide Attempts: No Insight: Poor Judgment: Poor Affect if Inappropriate: Flat, Blunt Mood: Sad Motor Activity: Normal gait Assessment & Plan Problem List: (1) Unspecified psychosis Assessment & Plan: The patient is a 51-year-old woman without a significant psychiatric history other than alcohol use disorder, now in early full remission, no previous suicidal attempts, no previous psychiatric hospitalizations, who came to the hospital under [place] act due to depressive symptoms and visual hallucinations. At the beginning of the hospitalization patient was confused, acting bizarre, with poor attention span, she seemed to be delirious. Her potassium was 2.9 and she she had a significant UTI. This conditions were treated appropriately, patient's sensorium and cognition improved, but she continues to be endorsing depressive symptoms, suicidal ideation and visual hallucinations. Patient seems to be objectively depressed, internally stimulated, with poverty of speech and blocking thought. We do not have a solid collateral information at this moment. Patient might represent a danger to herself due to level of psychosis and depression and also due to persistent suicidal ideation. She needs psychiatric hospitalization for admission and safety. Will continue in one-to-one sitter in the ER. Transfer to psychiatry once medically clear. Start olanzapine 2.5 mg twice a day for psychosis. caseworker protective services intervention for collateral information, psychosocial assessment, individual and group therapy. Extensive psychoeducation, supportive motivation provided. ICD Code: F29 Assessment & Plan Estimated LOS: Robinson Marquis MD September 25, 2016 13:35
[2016-09-25] MEDS: SULFAMETHOXAZOLE-TRIMETHOPRIM DS 800-160 MG TAB PO SCH (14:27)
[2016-09-25] MEDS: OLANZapine 2.5 MG TAB PO SCH ×2 (14:27→21:09)
[2016-09-25 17:58] VITALS: BP 101/55; PULSE 57; RESP 18; TEMP 98.5; O2SAT 98
[2016-09-25] MEDS ORDERED: REMOVE OLD NICODERM (NICOTINE) PATCH T-DERMAL SCH (21:00)
[2016-09-26] MEDS: SULFAMETHOXAZOLE-TRIMETHOPRIM DS 800-160 MG TAB PO SCH ×3 (01:46→21:31)
[2016-09-26 05:04] VITALS: BP 143/65; PULSE 67; RESP 18; TEMP 97.7; O2SAT 95
[2016-09-26] MEDS: NICOTINE 21 MG/24 HR PATCH T-DERMAL SCH (09:00)
[2016-09-26] MEDS: OLANZapine 2.5 MG TAB PO SCH ×2 (09:00→21:31)
[2016-09-26] MEDS ORDERED: MAGNESIUM HYDROXIDE SUSP 30 ML CUP PO PRN (12:15)
[2016-09-26] MEDS ORDERED: ACETAMINOPHEN 325 MG TAB PO PRN (12:15)
[2016-09-26] MEDS ORDERED: hydrOXYzine HCL 50 MG TAB PO PRN (12:15)
[2016-09-26] MEDS: ESCITALOPRAM OXALATE 10 MG TAB PO SCH (12:15)
--- NOTE | 2016-09-26 12:27 | HHI.PYPN ---
Subjective Remarks Patient seen in her room with nurse Moe, chart reviewed. Admitting orders finished. Patient gives a somewhat confusing history about losing a job well living in [facility], being homeless for a period of time, winding up in [facility] after being declared a missing person. Transferred here for further care and attention. Patient does denies suicidality at this time does deny voices or visions at this time though visit confusing aspect with her. She gives a vague history of her family her children her stepmother. Also confusing history of her alcohol use saying she is has not had a drink an extended period of time and minimizing her alcohol use. Mini-Mental the present time patient also endorses depression with initial and mid insomnia ediphone operator awakening, she is did have some suicidal thoughts in the past but denies at this time. Is vague about past auditory hallucinations though denies them at this time. Though she also appears to be thought blocking. In any event at the present time patient does meet criteria for further inpatient mental health assessment. However feel the patient does have capacity to sign voluntary thus I'll lift the [place] act allow her sign voluntary. We'll continue her medications properly EMR we will add Lexapro 10 mg in the morning. We'll attempt to reach patient's family further information about this lady helpless also to Review of Systems Except as stated in HPI: all other systems reviewed are Neg Objective Alert: Yes [place]: Person, Place, Date, Situation Mood: Calm, Depressed Affect: Restricted Memory Intact: Comment Hallucinations: Auditory (fair vague) Delusions: No Delusion Type: Other (vigilant) Suicidal: Ideation (denies at this time) Homicidal: Ideation (denies at this time) Insight/Judgment Poor Vitals/IOs Vital Signs Date Time Temp Pulse Resp B/P Pulse Ox O2 Delivery O2 Flow Rate FiO2 09/26/16 05:04 97.7 67 18 143/65 95 Intake and Output 09/25/16 09/25/16 09/26/16 08:00 16:00 00:00 Intake Total 360 ml Balance 360 ml Assessment & Plan Problem List: (1) Unspecified psychosis ICD Code: F29 Assessment & Plan Estimated LOS: days patient remains depressed vague psychotic features, that appear she does have capacity. Lift [place] act allow her sign voluntary. Lead Lexapro 10 mg daily to the regimen Justification for Cont. Inpt. At this time patient will decompensate placed on the lower level of care Discharge Planning To be determined Request HC Surrog/Guard Advoc?: No Guy Dallas MD September 26, 2016 12:27
--- NOTE | 2016-09-26 15:25 | PD.CONS ---
HPI Service Family Medicine Consult Requested By Psychiatry Reason for Consult Medical Management Primary Care Physician No Primary Care Physician History of Present Illness 51yo F with PMH of depression and psychosis admitted to psychiatry. Medicine team is consulted for patient's diarrhea and urinary tract infection. Patient started having diarrhea after receiving a dose of Rocephin at an outside hospital on 09/23, stating that her diarrhea was almost constant. She was checked for C. difficile on 09/24 and this was negative. Patient states that overall her diarrhea is much improved, but is still occurring about 5 times per day. She states that she would take a medication to help with the diarrhea, but that she does not want to become constipated. Also complaining of pain on urination and pelvic pressure. The urine sample from prior was showing culture indicated. Patient has been on Bactrim DS one tab twice a day since 09/25, will complete her 3 day course tomorrow. No fever, redness of breath, nausea or vomiting, or abdominal pain. Review of Systems Constitutional: DENIES: Fever Respiratory: DENIES: Cough, Shortness of breath Cardiovascular: DENIES: Chest pain Gastrointestinal: COMPLAINS OF: Diarrhea, DENIES: Abdominal pain, Bloody stools, Constipation, Nausea, Vomiting Genitourinary: COMPLAINS OF: Dysuria Past Family Social History Past Medical History PMH: Depression PSx: Fusion of neck SH: Denies any tobacco or drug use. Prior alcohol use, last time was 3 months ago per pt Homeless, lives in [facility] per pt Allergies: Coded Allergies: Penicillin (Verified Allergy, Intermediate, hives, 09/23/16) Physical Exam Vital Signs Vital Signs Date Time Temp Pulse Resp B/P Pulse Ox O2 Delivery O2 Flow Rate FiO2 09/26/16 05:04 97.7 67 18 143/65 95 09/25/16 17:58 98.5 57 18 101/55 98 Physical Exam GENERAL: This is a well-nourished, well-developed patient, in no apparent distress. SKIN: No rashes, ecchymoses or lesions. Cool and dry. HEAD: Atraumatic. Normocephalic. EYES: Extraocular motions intact. No injection or drainage. ENT: Nose without drainage NECK: Trachea midline. CARDIOVASCULAR: Warm and well perfused. RESPIRATORY: No increased work of breathing. GASTROINTESTINAL: Abdomen nondistended. MUSCULOSKELETAL: Extremities without clubbing, cyanosis, or edema. NEUROLOGICAL: Awake and alert. Normal speech. Assessment and Plan Assessment and Plan 51-year-old female admitted to psychiatry, medicine team is consulted for medical management of diarrhea and dysuria Code Status Full Discussed Condition With Discussed with Dr. Ugalde, Dr. Andrew Hackett, Dr. Hi Problem List: (1) Dysuria Status: Acute Plan: She complaining of dysuria. Has been afebrile. No leukocytosis. White blood cell count was 10.8 on 09/25. On review of EMR UA from 09/24 showed 50-100,000 mixed gram-positive ford, probable contaminant and reincubate. Plan: * Recheck urinalysis, ordered * Continue Bactrim DS 1 tablet twice a day to complete 3 day course, 09/25-09/28 (2) Diarrhea Status: Acute Plan: Overall, diarrhea is improving. Denies blood in the stool. C. difficile was negative on 09/24 Plan: * Imodium as needed for diarrhea * Continue to monitor for improvement (3) Suicidal ideation Status: Acute Plan: Currently being managed by psychiatry Plan: Medications as below by psychiatry * Lexapro 10 mg daily * Zyprexa 2.5 mg by mouth every 12 hours * Hydroxyzine 50 mg by mouth every 6 hours when necessary anxiety (4) Nutrition, metabolism, and development symptoms Status: Acute Plan: Regular diet Electrolytes were normal on 09/25. Initially patient did have hypokalemia at 2.9 on 09/23. Will recheck BMP in a.m. Tolerating by mouth, no fluids Lucy Goldsmith MD September 26, 2016 15:25
[2016-09-26] MEDS ORDERED: LOPERAMIDE HCL SOLN 2 MG/10 ML UDC PO PRN (15:30)
[2016-09-26 18:10] VITALS: BP 128/61; PULSE 75; RESP 18; TEMP 98.3; O2SAT 98
[2016-09-26 18:33] LABS: BLOOD, URINE MOD (NEG); COMMENT (UR) CULTURE INDICATED; CULTURE IF INDICATED CULTURE INDICATED; GLUCOSE,URINE NEG (NEG); KETONE, URINE NEG (NEG); NITRITE,URINE NEG (NEG); PH, URINE 6.5 (5.0-8.5); SQUAMOUS EPITHELIAL CELL URINE <1 /hpf (0-5); URINE COLOR YELLOW (YELLW/STRAW)
[2016-09-27 02:21] LABS: CHLAMYDIA PCR NOT DETECTED (NOT DETECT); NEISSERIA PCR NOT DETECTED (NOT DETECT)
[2016-09-27 05:49] VITALS: BP 130/64; PULSE 96; RESP 16; TEMP 98.7; O2SAT 96
[2016-09-27] MEDS: ESCITALOPRAM OXALATE 10 MG TAB PO SCH (08:16)
[2016-09-27] MEDS: OLANZapine 2.5 MG TAB PO SCH ×2 (08:16→21:29)
[2016-09-27 08:27] LABS: BICARBONATE 25.5 MEQ/L (21.0-32.0); POTASSIUM 4.6 MEQ/L (3.5-5.1)
--- NOTE | 2016-09-27 12:32 | HHI.FPPN ---
Subjective Remarks Patient is doing well this morning. Denies fever, chills. Discussed case with nurse. Patient remains vague. She is unsure why she is here. She is reclusive to her room. (Anselmo Hackett MD R2) Objective Vitals Vital Signs Date Time Temp Pulse Resp B/P Pulse Ox O2 Delivery O2 Flow Rate FiO2 09/27/16 05:49 98.7 96 16 130/64 96 09/26/16 18:10 98.3 75 18 128/61 98 (Anselmo Hackett MD R2) Result Diagram: 09/27/16 0732 Objective Remarks GENERAL: This is a well-nourished, well-developed patient, in no apparent distress. SKIN: No rashes, ecchymoses or lesions. Cool and dry. HEAD: Atraumatic. Normocephalic. EYES: Extraocular motions intact. No injection or drainage. ENT: Nose without drainage NECK: Trachea midline. CARDIOVASCULAR: Warm and well perfused. RESPIRATORY: No increased work of breathing. GASTROINTESTINAL: Abdomen nondistended. Mildly tender to palpation lower abdomen. Positive bowel sounds. MUSCULOSKELETAL: Extremities without clubbing, cyanosis, or edema. NEUROLOGICAL: Awake and alert. Normal speech. (Anselmo Hackett MD R2) A/P Assessment and Plan 51-year-old female admitted to psychiatry, medicine team is consulted for medical management of diarrhea and dysuria Discharge Planning Pending psychiatry (Anselmo Hackett MD R2) Attending Attestation Patient seen, examined, and discussed with resident team. I agree with assessment and management as documented and discussed with me. Pt denies diarrhea. Contineu antibiotics for UTI while we await UCx. (Rachael Ugalde MD) Problem List: (1) Dysuria Status: Acute Plan: Urine culture pending Continue Bactrim DS 1 tablet twice a day to complete 3-5 day course, 09/25-09/28 (2) Diarrhea Status: Acute Plan: Overall, diarrhea is improving. Denies blood in the stool. C. difficile was negative on 09/24 Plan: * Imodium as needed for diarrhea * Continue to monitor for improvement (3) Suicidal ideation Status: Acute Plan: Currently being managed by psychiatry Plan: Medications as below by psychiatry * Lexapro 10 mg daily * Zyprexa 2.5 mg by mouth every 12 hours * Hydroxyzine 50 mg by mouth every 6 hours when necessary anxiety (4) Nutrition, metabolism, and development symptoms Status: Acute Plan: Regular diet Electrolytes: Monitor and replace as needed Tolerating by mouth, no fluids (Anselmo Hackett MD R2) Anselmo Hackett MD R2 September 27, 2016 12:32 Rachael Ugalde MD September 28, 2016 10:40
[2016-09-27] MEDS: SULFAMETHOXAZOLE-TRIMETHOPRIM DS 800-160 MG TAB PO SCH (14:01)
--- NOTE | 2016-09-27 14:32 | HHI.PYPN ---
Subjective Remarks Patient seen in [facility] nurse Baltazar, chart reviewed, patient complaining of some UTI symptoms at this time including dysuria and urgency and frequency. Is being treated at this time. Also continues markedly fearful depressed in ED. Patient compliant with her medications. For now continue treatment Review of Systems Except as stated in HPI: all other systems reviewed are Neg Objective Alert: Yes [place]: Person, Place, Date, Situation Mood: Calm, Depressed Affect: Restricted Memory Intact: Comment Hallucinations: Auditory (fair vague) Delusions: No Delusion Type: Other (vigilant) Suicidal: Ideation (denies at this time) Homicidal: Ideation (denies at this time) Insight/Judgment Poor Labs Test 09/26/16 09/27/16 18:00 07:32 Chlamydia trachomatis DNA NOT DETECTED (PCR) Neisseria gonorrhoeae DNA NOT DETECTED (PCR) Sodium Level 136 MEQ/L Potassium Level 4.6 MEQ/L Chloride Level 102 MEQ/L Carbon Dioxide Level 25.5 MEQ/L Anion Gap 9 MEQ/L Blood Urea Nitrogen 15 MG/DL Creatinine 1.19 MG/DL Estimat Glomerular Filtration 47 ML/MIN Rate Random Glucose 107 MG/DL Calcium Level 10.3 MG/DL Date/Time Procedure Status Source Growth 09/26/16 00:00 Urine Culture - Preliminary Resulted Urine Clean Catch NO GROWTH IN 24 HOURS. Vitals/IOs Vital Signs Date Time Temp Pulse Resp B/P Pulse Ox O2 Delivery O2 Flow Rate FiO2 09/27/16 05:49 98.7 96 16 130/64 96 Assessment & Plan Problem List: (1) OTH PSYCH DISORDER NOT DUE TO A SUB OR KNOWN PHYSIOL COND ICD Code: F28 Assessment & Plan Estimated LOS: days patient continues quite depressed anxious need E, along with symptoms of her UTI. For now continue treatment Justification for Cont. Inpt. At this time patient would significantly deteriorate if placed in a lower level of care Discharge Planning To be determined Request HC Surrog/Guard Advoc?: No Guy Dallas MD September 27, 2016 14:32
[2016-09-27 18:00] VITALS: BP 107/80; PULSE 79; RESP 18; TEMP 97.1; O2SAT 96
[2016-09-27] MEDS: diphenhydrAMINE HCL 50 MG CAP PO PRN (21:29)
[2016-09-28] MEDS: SULFAMETHOXAZOLE-TRIMETHOPRIM DS 800-160 MG TAB PO SCH (02:06)
[2016-09-28 06:22] VITALS: BP 141/80; PULSE 80; RESP 18; TEMP 97.8; O2SAT 96
[2016-09-28] MEDS: ESCITALOPRAM OXALATE 10 MG TAB PO SCH (08:30)
[2016-09-28] MEDS: OLANZapine 2.5 MG TAB PO SCH ×2 (08:30→20:44)
--- NOTE | 2016-09-28 10:51 | HHI.PYPN ---
Subjective Remarks Patient seen in the day room with RN. Chart reviewed. Patient compliant medications. Patient continues depressed need E stating she slept slightly better with the Benadryl last night. She is vague about intermittent suicidal ideation. Those deny voices at the present time. For now continue treatment Review of Systems Except as stated in HPI: all other systems reviewed are Neg Objective Alert: Yes [place]: Person, Place, Date, Situation Mood: Calm, Depressed Affect: Restricted Memory Intact: Comment Hallucinations: Auditory (fair vague) Delusions: No Delusion Type: Other (vigilant) Suicidal: Ideation (denies at this time) Homicidal: Ideation (denies at this time) Insight/Judgment Poor Labs Date/Time Procedure Status Source Growth 09/26/16 00:00 Urine Culture - Final Complete Urine Clean Catch NO GROWTH IN 48 HOURS. Vitals/IOs Vital Signs Date Time Temp Pulse Resp B/P Pulse Ox O2 Delivery O2 Flow Rate FiO2 09/28/16 06:22 97.8 80 18 141/80 96 Intake and Output 09/27/16 09/27/16 09/28/16 08:00 16:00 00:00 Intake Total 360 ml Balance 360 ml Assessment & Plan Problem List: (1) OTH PSYCH DISORDER NOT DUE TO A SUB OR KNOWN PHYSIOL COND ICD Code: F28 Assessment & Plan Estimated LOS: days patient continues depressed vague suicidal ideation, compliant medication Justification for Cont. Inpt. At the present time patient will decompensate with placed in a lower level of care Discharge Planning To be determined Request HC Surrog/Guard Advoc?: No Gyu Dallas MD September 28, 2016 10:51
--- NOTE | 2016-09-28 10:54 | HHI.FPPN ---
Subjective Remarks Patient is doing well this morning. Complains of mild abdominal pain, perhaps slightly improved from yesterday. Denies fever, chills, nausea, vomiting. Objective Vitals Vital Signs Date Time Temp Pulse Resp B/P Pulse Ox O2 Delivery O2 Flow Rate FiO2 09/28/16 06:22 97.8 80 18 141/80 96 09/27/16 18:00 97.1 79 18 107/80 96 I/O 09/27/16 09/27/16 09/27/16 09/28/16 09/28/16 09/28/16 07:00 15:00 23:00 07:00 15:00 23:00 Intake Total 360 ml Balance 360 ml Intake Oral 360 ml Result Diagram: 09/27/16 0732 Objective Remarks GENERAL: This is a well-nourished, well-developed patient, in no apparent distress. SKIN: No rashes, ecchymoses or lesions. Cool and dry. HEAD: Atraumatic. Normocephalic. EYES: Extraocular motions intact. No injection or drainage. ENT: Nose without drainage NECK: Trachea midline. CARDIOVASCULAR: Warm and well perfused. RESPIRATORY: No increased work of breathing. GASTROINTESTINAL: Abdomen nondistended. Mildly tender to palpation lower abdomen. Positive bowel sounds. MUSCULOSKELETAL: Extremities without clubbing, cyanosis, or edema. NEUROLOGICAL: Awake and alert. Normal speech. A/P Assessment and Plan 51-year-old female admitted to psychiatry, medicine team is consulted for medical management of diarrhea and dysuria Discharge Planning Medically stable and cleared to psychiatry. We will sign off at this time. Please reconsult/call as needed. Pending psychiatry Problem List: (1) Dysuria Status: Acute Plan: Urine culture: No growth to date 48 hours. Continue Bactrim DS 1 tablet twice a day to complete 3-5 day course, 09/25-09/28 Stop antibiotics today. (2) Diarrhea Status: Acute Plan: Overall, diarrhea is improving. Denies blood in the stool. C. difficile was negative on 09/24 Plan: * Imodium as needed for diarrhea * Continue to monitor for improvement (3) Suicidal ideation Status: Acute Plan: Currently being managed by psychiatry Plan: Medications as below by psychiatry * Lexapro 10 mg daily * Zyprexa 2.5 mg by mouth every 12 hours * Hydroxyzine 50 mg by mouth every 6 hours when necessary anxiety (4) Nutrition, metabolism, and development symptoms Status: Acute Plan: Regular diet Electrolytes: Monitor and replace as needed Tolerating by mouth, no fluids Anselmo Hackett MD R2 September 28, 2016 10:54
[2016-09-28 17:18] VITALS: BP 117/68; PULSE 86; RESP 18; TEMP 98.7; O2SAT 96
[2016-09-28] MEDS: diphenhydrAMINE HCL 50 MG CAP PO PRN (20:44)
[2016-09-29 05:52] VITALS: BP 121/61; PULSE 88; RESP 16; TEMP 98.5; O2SAT 96
[2016-09-29] MEDS: ESCITALOPRAM OXALATE 10 MG TAB PO SCH (09:03)
[2016-09-29] MEDS: OLANZapine 2.5 MG TAB PO SCH ×2 (09:03→21:48)
--- NOTE | 2016-09-29 17:34 | HHI.PYPN ---
Subjective Remarks Pt seen and discussed with staff. She reports that that symptoms are improving but she remains depressed and continues to experience some impairment in reality testing. No medication side effects. NO SI/HI. Objective Alert: Yes [place]: Person, Place, Date, Situation Mood: Calm, Depressed Affect: Restricted Memory Intact: Comment Hallucinations: Auditory Delusions: No Delusion Type: Other (vigilant) Suicidal: Ideation (denies at this time) Homicidal: Ideation (denies at this time) Insight/Judgment poor Labs Date/Time Procedure Status Source Growth 09/26/16 00:00 Urine Culture - Final Complete Urine Clean Catch NO GROWTH IN 48 HOURS. Vitals/IOs Vital Signs Date Time Temp Pulse Resp B/P Pulse Ox O2 Delivery O2 Flow Rate FiO2 09/29/16 05:52 98.5 88 16 121/61 96 Assessment & Plan Problem List: (1) OTH PSYCH DISORDER NOT DUE TO A SUB OR KNOWN PHYSIOL COND ICD Code: F28 Assessment & Plan Continue current tx plan. Estimated LOS: days Justification for Cont. Inpt. risk of decompensation Request HC Surrog/Guard Advoc?: No Perlita Liu MD September 29, 2016 17:34
[2016-09-29 18:00] VITALS: BP 128/75; PULSE 76; RESP 17; TEMP 97.1; O2SAT 97
[2016-09-29] MEDS: ALUMINUM/MAGNESIUM/SIMETH 30 ML CUP PO PRN (18:07)
[2016-09-29] MEDS: diphenhydrAMINE HCL 50 MG CAP PO PRN (21:49)
[2016-09-30 05:07] VITALS: BP 117/59; PULSE 56; RESP 16; TEMP 98; O2SAT 97
[2016-09-30 05:41] VITALS: BP 117/59; PULSE 56; RESP 16; TEMP 98; O2SAT 97
[2016-09-30] MEDS: ESCITALOPRAM OXALATE 10 MG TAB PO SCH (09:48)
[2016-09-30] MEDS: OLANZapine 2.5 MG TAB PO SCH (09:48)
--- NOTE | 2016-09-30 16:40 | HHI.PYPN ---
Subjective Remarks Pt seen and discussed with staff. She reports she had panic attacks and increased paranoia at night. She reports mood remains depressed but feelings of "unreality" have lessened." No SI/HI Objective Alert: Yes [place]: Person, Place, Date, Situation Mood: Calm, Depressed Affect: Restricted Memory Intact: Comment Hallucinations: Auditory Delusions: No Delusion Type: Other (vigilant) Suicidal: Ideation (denies at this time) Homicidal: Ideation (denies at this time) Insight/Judgment limited Labs Date/Time Procedure Status Source Growth 09/26/16 00:00 Urine Culture - Final Complete Urine Clean Catch NO GROWTH IN 48 HOURS. Vitals/IOs Vital Signs Date Time Temp Pulse Resp B/P Pulse Ox O2 Delivery O2 Flow Rate FiO2 09/30/16 05:41 98.0 56 16 117/59 97 Intake and Output 09/29/16 09/29/16 09/30/16 08:00 16:00 00:00 Intake Total 600 ml 600 ml Balance 600 ml 600 ml Assessment & Plan Problem List: (1) OTH PSYCH DISORDER NOT DUE TO A SUB OR KNOWN PHYSIOL COND ICD Code: F28 Assessment & Plan Titrate evening olanzapine to target psychosis. Estimated LOS: days Justification for Cont. Inpt. risk of decompensation Request HC Surrog/Guard Advoc?: Perlita Taylor MD September 30, 2016 16:40
[2016-09-30] MEDS ORDERED: OLANZapine 5 MG TAB PO SCH (21:00)
[2016-09-30] MEDS: diphenhydrAMINE HCL 50 MG CAP PO PRN (21:18)
[2016-09-30] MEDS: ALUMINUM/MAGNESIUM/SIMETH 30 ML CUP PO PRN (21:46)
[2016-10-01 05:39] VITALS: BP 115/59; PULSE 65; RESP 16; TEMP 97.7; O2SAT 97
[2016-10-01] MEDS ORDERED: OLANZapine 2.5 MG TAB PO SCH (09:00)
[2016-10-01] MEDS: ESCITALOPRAM OXALATE 10 MG TAB PO SCH (09:01)
--- NOTE | 2016-10-01 12:43 | HHI.PYPN ---
Subjective Remarks Patient seen today in [place] with nurse Gem. Patient continues anxious nervous and depressed focusing now on finances and placement. She states she consider returning with her parents. When asked for permission to speak with her parents she procrastinates she does denies suicidality homicidality denies voices or visions at this time. Will increase Lexapro from 10to 20 mg daily Review of Systems Except as stated in HPI: all other systems reviewed are Neg Objective Alert: Yes [place]: Person, Place, Date, Situation Mood: Calm, Depressed Affect: Restricted Memory Intact: Comment Hallucinations: Auditory Delusions: No Delusion Type: Other (vigilant) Suicidal: Ideation (denies at this time) Homicidal: Ideation (denies at this time) Insight/Judgment Poor Vitals/IOs Vital Signs Date Time Temp Pulse Resp B/P Pulse Ox O2 Delivery O2 Flow Rate FiO2 10/01/16 05:39 97.7 65 16 115/59 97 Assessment & Plan Problem List: (1) OTH PSYCH DISORDER NOT DUE TO A SUB OR KNOWN PHYSIOL COND ICD Code: F28 Assessment & Plan Estimated LOS: days patient remains somewhat paranoid and vigilant and depressed please see medication adjustments above Justification for Cont. Inpt. With this time patient will decompensate the placed in a lower level of care Discharge Planning To be determined Request HC Surrog/Guard Advoc?: No Guy Dallas MD October 01, 2016 12:42
[2016-10-01 17:05] VITALS: BP 131/60; PULSE 62; RESP 18; TEMP 98.6; O2SAT 94
[2016-10-01] MEDS: ALUMINUM/MAGNESIUM/SIMETH 30 ML CUP PO PRN (18:13)
[2016-10-01] MEDS ORDERED: LORazepam 1 MG TAB PO PRN (20:15)
[2016-10-01] MEDS ORDERED: LOPERAMIDE HCL SOLN 2 MG/10 ML UDC PO PRN (20:15)
[2016-10-01] MEDS ORDERED: MAGNESIUM HYDROXIDE SUSP 30 ML CUP PO PRN (20:15)
[2016-10-01] MEDS ORDERED: ALUMINUM/MAGNESIUM/SIMETH 30 ML CUP PO PRN (20:15)
[2016-10-01] MEDS ORDERED: ACETAMINOPHEN 325 MG TAB PO PRN (20:15)
[2016-10-01] MEDS ORDERED: diphenhydrAMINE HCL 50 MG CAP PO PRN (21:00)
[2016-10-01] MEDS: OLANZapine 5 MG TAB PO SCH (21:14)
[2016-10-02 06:00] VITALS: BP 117/63; PULSE 61; RESP 16; TEMP 97.7; O2SAT 96
[2016-10-02] MEDS: ESCITALOPRAM OXALATE 10 MG TAB PO SCH (08:19)
[2016-10-02] MEDS: OLANZapine 2.5 MG TAB PO SCH (08:19)
[2016-10-02] MEDS: hydrOXYzine HCL 50 MG TAB PO PRN ×2 (11:38→22:11)
--- NOTE | 2016-10-02 14:10 | HHI.PYPN ---
Subjective Remarks Patient seen in [place] with floor staff, chart review, patient compliant medication. States she is having episodes of feeling better with intervals of sadness. Though she denies suicidality at this time, denies voices at this time. Patient hopes to return home with her parents. Will ask family to meet with us tomorrow morning to discuss this Review of Systems Except as stated in HPI: all other systems reviewed are Neg Objective Alert: Yes [place]: Person, Place, Date, Situation Mood: Calm, Depressed Affect: Restricted Memory Intact: Comment Hallucinations: Auditory Delusions: No Delusion Type: Other (vigilant) Suicidal: Ideation (denies at this time) Homicidal: Ideation (denies at this time) Insight/Judgment Poor Vitals/IOs Vital Signs Date Time Temp Pulse Resp B/P Pulse Ox O2 Delivery O2 Flow Rate FiO2 10/01/16 17:05 98.6 62 18 131/60 94 Assessment & Plan Problem List: (1) OTH PSYCH DISORDER NOT DUE TO A SUB OR KNOWN PHYSIOL COND ICD Code: F28 Assessment & Plan Estimated LOS: days patient somewhat calmer mood is somewhat better her vigilance and paranoia have markedly decreased. We'll meet with family tomorrow morning Justification for Cont. Inpt. At this time patient decompensate if placed in a lower level of care Discharge Planning To be determined Request HC Surrog/Guard Advoc?: No Guy Dallas MD October 02, 2016 14:10
[2016-10-02 16:46] VITALS: BP 123/58; PULSE 79; RESP 18; TEMP 98.6; O2SAT 98
[2016-10-02] MEDS: OLANZapine 5 MG TAB PO SCH (21:53)
[2016-10-03 06:22] VITALS: BP 109/59; PULSE 82; RESP 18; TEMP 97.5; O2SAT 96
[2016-10-03] MEDS: OLANZapine 2.5 MG TAB PO SCH (08:11)
[2016-10-03] MEDS: hydrOXYzine HCL 50 MG TAB PO PRN ×2 (08:11→21:45)
[2016-10-03] MEDS: ESCITALOPRAM OXALATE 10 MG TAB PO SCH (08:12)
--- NOTE | 2016-10-03 11:45 | HHI.PYPN ---
Subjective Remarks Patient seen in my office with her mother and father. Along with counselor Elizabeth Mullins. Did discuss with family patient's diagnosis medications treatment discharge plans and recommendations for follow-up this took approximately 60 minutes. Patient feels calmer and appropriate during the session the denies suicidality voices or visions. Pictures some anxiety about being discharged though this apparently is a markedly loving caring relationship between she and her parents. Mother is willing to have patient come home with her and follow through [facility] area. Will get her medications refilled today with anticipation of discharge tomorrow Review of Systems Except as stated in HPI: all other systems reviewed are Neg Objective Alert: Yes [place]: Person, Place, Date, Situation Mood: Calm, Depressed Affect: Restricted Memory Intact: Comment Hallucinations: Auditory Delusions: No Delusion Type: Other (vigilant) Suicidal: Ideation (denies at this time) Homicidal: Ideation (denies at this time) Insight/Judgment Poor Vitals/IOs Vital Signs Date Time Temp Pulse Resp B/P Pulse Ox O2 Delivery O2 Flow Rate FiO2 10/03/16 06:22 97.5 82 18 109/59 96 Assessment & Plan Problem List: (1) OTH PSYCH DISORDER NOT DUE TO A SUB OR KNOWN PHYSIOL COND ICD Code: F28 Assessment & Plan Estimated LOS: days while patient remains somewhat anxious and vigilant she appears willing to work with the discharge plans with her family. Justification for Cont. Inpt. This time preparations are being made for discharge tomorrow Discharge Planning To be determined Request HC Surrog/Guard Advoc?: No Guy Dallas MD October 03, 2016 11:45
[2016-10-03] MEDS ORDERED: LEXA20TA PO (11:48)
[2016-10-03] MEDS ORDERED: OLAN5TAB PO (11:48)
[2016-10-03 16:00] VITALS: BP 115/68; PULSE 91; RESP 20; TEMP 98.6; O2SAT 95
[2016-10-03] MEDS: OLANZapine 5 MG TAB PO SCH (21:42)
[2016-10-04] MEDS: OLANZapine 2.5 MG TAB PO SCH (09:14)
[2016-10-04] MEDS: ESCITALOPRAM OXALATE 10 MG TAB PO SCH (09:14)
[2016-10-04] MEDS: hydrOXYzine HCL 50 MG TAB PO PRN (09:19)
[2016-10-04] MEDS ORDERED: ZYPR2.5T2 PO (12:25)
[2016-10-04] MEDS ORDERED: LEXA20TA PO (12:25)
--- NOTE | 2016-10-04 12:36 | HHI.DS ---
Psychiatry Discharge Summary Inpatient Psychiatric care?: Yes Advance Directive: No Reason Not Provided: Due to Patient Condition Mental Health AdvanceDirective: No Health Care Proxy: No Admission Admission Date September 25, 2016 at 11:40 Admission Diagnosis: (1) OTH PSYCH DISORDER NOT DUE TO A SUB OR KNOWN PHYSIOL COND ICD Code: F28 Brief History The patient is a 51-year-old woman, , homeless, without any previous psychiatric history, no previous psychiatric hospitalizations, no previous suicidal attempts, as per stepmother she has history of alcohol use disorder in the past, patient says that she hasn't used alcohol for the last 3 months, no significant medical history, who presented to the ED with complaints of occasional suicidal thoughts and visual hallucinations and was admitted to psychiatry. She was previously placed in J pod, but medicine team was called for admission as patient is having diarrhea since receiving a single dose of Rocephin per report, and there is concern for C. Difficile. Per EMR: patient was a missing person and was brought to [facility] and had a full work up and was discharged yesterday. Per pt, was told to come to [place] for psych where she was admitted to psychiatry under [place] Act. On psychiatric evaluation patient is found in her bed, she is calm, but kind of detached, superficially cooperative. Patient says that she has been feeling very depressed for the last weeks, has been walking in the street, getting confused, forgetting things, she hasn't been eating, she says that she has been having visual hallucinations "usually obstacles in the way, also people behind and in front of me", but she denies auditory hallucinations. She reports suicidal ideation, she says"I want to live anymore, there is nothing for me to do in this world", but she denies suicidal intentions or plan. Patient seems to be internally stimulated, at times paranoid, with a pronounced blocking thought and poverty of speech. Patient is oriented 3 and now, no attention deficit present, she does not seems to be delirious. She denies the use of illicit drugs, reports that she was an alcoholic, but hasn't been drinking for the last 3 months. I try to get collateral information from her stepmother, , but her stepmother says that she hasn't seen the patient for a few months now. And she doesn't know anything about her psychiatric history or about her current living circumstances. But she clarifies the patient has extensive history of alcohol use disorder. Tobacco Use In Past 30 Days: No Tobacco Past 30 Days Alcohol Use: Never Hospital Course Patient's depression with psychotic features and paranoia slowly diminished and she gained confidence in the milieu and that the staff, and show compliance with her medication. We did meet with her parents yesterday. Was agreed that patient is doing better. That she is now able to return home with family. Patient is willing to go home with the mother and father follow-up was for Diogo perez continue medication. She does denies suicidality homicidality voices or visions. There is some mild anxiety related to relieve this unit I feel that is appropriate for her. Thus patient will be discharged today to her family Rx 1 month follow-up Filemon Lind act Results Blood Pressure 115 / 68 Vital Signs Date Time Temp Pulse Resp B/P Pulse Ox O2 Delivery O2 Flow Rate FiO2 10/03/16 16:00 98.6 91 20 115/68 95 UA showed culture indicated Summary of Procedures None done Pending results at discharge: No Medications # of Antipsychotic meds at D/C: 1 Approp Antipsych med options 1 - Minimum of three failed multiple trials of monotherapy. 2 - Documented plan to taper to monotherapy due to previous use of multiple meds OR cross-taper in progress at D/C. 3 - Documentation of augmentation of Clozapine. 4 - Justification other than those listed in allowable values 1-3, document here : Discharge Discharge Date: Oct 04, 2016 Discharge Diagnosis: (1) OTH PSYCH DISORDER NOT DUE TO A SUB OR KNOWN PHYSIOL COND Diagnosis: Principal ICD Code: F28 Mental Status Exam at Disch Alert oriented somewhat timid dependent thin slender white female with poor dentition, calm cooperative poor to fair eye contact she is somewhat hypoactive , mood is restricted mildly dysphoric with decreased range intensity of her affect speech rate and rhythm is slow mildly tangential, there are no auditory or visual hallucinations no delusions. Insight and judgment is poor to fair. Cognition grossly intact Pt Condition on Discharge: Stable Discharge Disposition: Discharge Home Discharge Instructions Diet Instructions: As Tolerated, No Restrictions Activities you can perform: Regular-No Restrictions Scheduled Appointment: Filemon Perez Appointment Date: Oct 08, 2016 Appointment Time: 7:30am Discharge Time <= 30 minutes Discharge/Advance Care Plan Health Problems: (1) OTH PSYCH DISORDER NOT DUE TO A SUB OR KNOWN PHYSIOL COND Goals to promote your health * To prevent worsening of your condition and complications * To maintain your health at the optimal level Directions to meet your goals Take your medications as prescribed Follow your dietary instruction Follow activity as directed Keep your appointments as scheduled Take your immunizations and boosters as scheduled If your symptoms worsen call your PCP, if no PCP go to Urgent Care Center or Emergency Room For 26/11 questions related to your inpatient stay or results of tests pending at discharge, please contact Dr. Guy Dallas at Smoking is Dangerous to Your Health. Avoid second hand smoking Guy Dallas MD Oct 04, 2016 12:36
[2016-10-04] MEDS ORDERED: OLAN5TAB PO (14:03)
== END 2016-10-04 13:00 | disposition home or self-care (01) | DRG 885 ==
LOC: H260 11:40 → UNDODISIN 10-01 13:30
PROVIDERS: ADMIT Psychiatry & Neurology Psychiatry; ATTEND Psychiatry & Neurology Psychiatry
DX: F28 Other psychotic disorder not due to a substance or known physiological condition (principal); R45.851 Suicidal ideations; E87.6 Hypokalemia; Z59.0 Homelessness; R19.7 Diarrhea, unspecified; R30.0 Dysuria
CPT/HCPCS: 80048; 81001; 87086; 87491; 87591; Q0163